=== PATIENT | female | born 1960 | race Caucasian/White ===

== ENCOUNTER 2020-05-10 10:32 | Emergency (ER) | payer OTHER ==
[2020-05-10] MEDS ORDERED: ADENOSINE 6 MG/ 2ML VIAL IV ONE (11:10)
[2020-05-10] MEDS ORDERED: NA CHLORIDE 0.9% 500 ML ONE (11:11)
[2020-05-10 11:27] LABS: Absolute Lymphocytes (CBC) 1.7 K/uL (0.7-4.9); Basophils % 0.8 % (0-1.3); Hematocrit 41.9 % (36.0-45.0); Lymphocytes % 22.3 % (15.3-44.8); RBC Red Blood Cell Count 5.49 M/uL (3.86-4.86)
[2020-05-10 11:56] LABS: BUN Blood Urea Nitrogen 17 mg/dL (7-18); Bicarbonate 31 mmol/L (21-32); CKMB Creatine Kinase MB < 1.0 ng/mL (0.3-3.6); Creatine Phosphokinase 58 U/L (26-192); Glucose Level 113 mg/dL (74-106); Potassium 3.7 mmol/L (3.5-5.1); Sodium Level 139 mmol/L (136-145); Troponin (Emerg Dept Use Only) < 0.02 ng/mL (0.0-0.045)
--- NOTE | 2020-05-10 12:18 | EDPHYS ---
Physician Documentation [facility] Name: Anna Huffman Age: 59 yrs Sex: Female : 1960 Arrival Date: 05/10/2020 Time: 10:33 Bed 5 Private MD: Catrachito Brown HPI: 05/10 11:08 This 59 yrs old Female presents to ER via Unassigned with complaints of snw Irregular Pulse. 11:08 Onset: The symptoms/episode began/occurred suddenly. Associated signs and symptoms: snw Pertinent positives: palpitations. Modifying factors: the patient symptoms are aggravated by caffeine. The patient has experienced similar episodes in the past, several times. It is unknown whether or not the patient has recently seen a physician. Historical: - Allergies: 11:25 PENICILLINS; ss - Home Meds: 11:25 None [Active]; ss - PMHx: 11:25 None; ss - PSHx: 11:25 Cholecystectomy; ss - Immunization history:: Adult Immunizations up to date, Flu vaccine is not up to date. - Social history:: Smoking status: Patient denies any tobacco usage or history of. ROS: 11:07 Constitutional: Negative for fever, chills, and weight loss, Eyes: Negative for injury, snw pain, redness, and discharge, ENT: Negative for injury, pain, and discharge, Neck: Negative for injury, pain, and swelling, Respiratory: Negative for shortness of breath, cough, wheezing, and pleuritic chest pain, Abdomen/GI: Negative for abdominal pain, nausea, vomiting, diarrhea, and constipation, Back: Negative for injury and pain, : Negative for injury, bleeding, discharge, and swelling, MS/Extremity: Negative for injury and deformity, Skin: Negative for injury, rash, and discoloration, Neuro: Negative for headache, weakness, numbness, tingling, and seizure, Psych: Negative for depression, anxiety, suicide ideation, homicidal ideation, and hallucinations. 11:07 Cardiovascular: Positive for palpitations. Exam: 11:07 Head/Face: Normocephalic, atraumatic. Eyes: Pupils equal round and reactive to light, snw extra-ocular motions intact. Lids and lashes normal. Conjunctiva and sclera are non-icteric and not injected. Cornea within normal limits. Periorbital areas with no swelling, redness, or edema. ENT: Nares patent. No nasal discharge, no septal abnormalities noted. Tympanic membranes are normal and external auditory canals are clear. Oropharynx with no redness, swelling, or masses, exudates, or evidence of obstruction, uvula midline. Mucous membranes moist. Neck: Trachea midline, no thyromegaly or masses palpated, and no cervical lymphadenopathy. Supple, full range of motion without nuchal rigidity, or vertebral point tenderness. No Meningismus. Chest/axilla: Normal chest wall appearance and motion. Nontender with no deformity. No lesions are appreciated. 11:07 Respiratory: Lungs have equal breath sounds bilaterally, clear to auscultation and percussion. No rales, rhonchi or wheezes noted. No increased work of breathing, no retractions or nasal flaring. Abdomen/GI: Soft, non-tender, with normal bowel sounds. No distension or tympany. No guarding or rebound. No evidence of tenderness throughout. Back: No spinal tenderness. No costovertebral tenderness. Full range of motion. Skin: Warm, dry with normal turgor. Normal color with no rashes, no lesions, and no evidence of cellulitis. MS/ Extremity: Pulses equal, no cyanosis. Neurovascular intact. Full, normal range of motion. Neuro: Awake and alert, GCS 15, oriented to person, place, time, and situation. Cranial nerves II-XII grossly intact. Motor strength 5/5 in all extremities. Sensory grossly intact. Cerebellar exam normal. Normal gait. Psych: Awake, alert, with orientation to person, place and time. Behavior, mood, and affect are within normal limits. 11:07 Constitutional: The patient appears alert, awake. 11:07 Cardiovascular: Rate: tachycardic, actual rate is 210 bpm, Rhythm: regular, Pulses: no pulse deficits are appreciated, Heart sounds: normal, Edema: is not appreciated, JVD: is not appreciated. 11:07 ECG was reviewed by the Attending Physician. Vital Signs: 10:55 BP 136 / 106; Pulse 208; Resp 18; Temp 98.2(TE); Pulse Ox 98% on R/A; Weight 65.77 kg; ss Height 5 ft. 0 in. (152.40 cm); Pain 0/10; 11:05 BP 125 / 91; Pulse 107; Resp 16; Pulse Ox 100% on R/A; Pain 0/10; ss 11:47 BP 125 / 91; Pulse 107; Resp 16; Pulse Ox 97% on R/A; Pain 0/10; ss 10:55 Body Mass Index 28.32 (65.77 kg, 152.40 cm) ss Procedures: 11:09 Cardioversion: chemical, 6mg Adenocard, small pause in cardiac activity. rate now 108, snw pt tolerated well. No complications. MDM: 10:51 Patient medically screened. snw 11:09 Data reviewed: vital signs, nurses notes. Counseling: I had a detailed discussion with snw the patient and/or guardian regarding: the historical points, exam findings, and any diagnostic results supporting the discharge/admit diagnosis, lab results, the need for outpatient follow up. 11:09 ED course: Pt's Mom and Sister have thyroid problems. snw 11:40 Response to treatment: the patient's condition has returned to base line, the patient snw is now symptom free. 12 11:07 Order name: TSH; Complete Time: 12:35 snw 1204 11:07 Order name: CBC with Diff; Complete Time: 12:15 snw 1204 11:07 Order name: Chem 7; Complete Time: 12:35 snw 1204 11:07 Order name: Ckmb; Complete Time: 12:35 snw 1204 11:07 Order name: Troponin (emerg Dept Use Only); Complete Time: 12:35 snw 1204 11:07 Order name: CPK; Complete Time: 12:35 snw 1204 11:07 Order name: EKG; Complete Time: 11:07 snw 1204 11:07 Order name: EKG - Nurse/Tech; Complete Time: 11:21 snw 1204 12:08 Order name: T4 Free; Complete Time: 12:35 EDMS Administered Medications: 11:00 Drug: NS 0.9% 500 ml Route: IV; Rate: bolus; Site: right antecubital; ss 11:01 Drug: Adenocard 6 mg Route: IVP; Site: right antecubital; ss 12:25 Follow up: Response: No adverse reaction; Cardiac rhythm changed zb 12:42 Drug: Metoprolol 25 mg Route: PO; zb Disposition: 05/11 08:28 Co-signature as Attending Physician, Catrachito Hoover MD I agree with the assessment and mylene plan of care. Disposition: 05/10/20 12:17 Discharged to Home. Impression: Supraventricular tachycardia. - Condition is Stable. - Discharge Instructions: Pharmaceutical Cardioversion, Paroxysmal Supraventricular Tachycardia, Cardiac Ablation, [id number]. - Prescriptions for metoprolol succinate 25 mg Oral tablet extended release 24 hr - take 1 tablet by ORAL route once daily; 30 tablet. - Medication Reconciliation Form, Thank You Letter, Antibiotic Education, Prescription Opioid Use form. - Follow up: Emergency Department; When: As needed; Reason: Worsening of condition. Follow up: Private Physician; When: 2 - 3 days; Reason: Recheck today's complaints, Continuance of care, Re-evaluation by your physician. Signatures: Dispatcher [employer] Catrachito Mireles MD MD cha Waters, Shelly, INFRASTRUCTURE MANAGER-C INFRASTRUCTURE MANAGER-Jorgew Liliya Lal RN RN ss Brown, Zipporah, RN RN zb Corrections: (The following items were deleted from the chart) 05/10 12:49 12:17 05/10/2020 12:17 Discharged to Home. Impression: Supraventricular tachycardia. zb Condition is Stable. Forms are Medication Reconciliation Form, Thank You Letter, Antibiotic Education, Prescription Opioid Use. Follow up: Emergency Department; When: As needed; Reason: Worsening of condition. Follow up: Private Physician; When: 2 - 3 days; Reason: Recheck today's complaints, Continuance of care, Re-evaluation by your physician. snw
--- NOTE | 2020-05-10 12:18 | ER ---
Nurse's Notes [facility] Name: Anna Huffman Age: 59 yrs Sex: Female : 1960 Arrival Date: 05/10/2020 Time: 10:33 Bed 5 Private MD: Diagnosis: Supraventricular tachycardia Presentation: 05/10 10:55 Chief complaint: Patient states: "I started feeling flutters in my chest this morning ss and so we were coming up here, but then they went away so we turned around, but in the last hour they've returned and haven't gone away.". Coronavirus screen: Client denies travel out of the [place] in the last 14 days. Ebola Screen: Patient denies exposure to infectious person. Patient denies travel to an Ebola-affected area in the 21 days before illness onset. Initial Sepsis Screen: Does the patient meet any 2 criteria? HR > 90 bpm. No. Patient's initial sepsis screen is negative. Does the patient have a suspected source of infection? No. Patient's initial sepsis screen is negative. Risk Assessment: Do you want to hurt yourself or someone else? Patient reports no desire to harm self or others. Onset of symptoms was May 10, 2020. 10:55 Method Of Arrival: Ambulatory ss 10:55 Acuity: REESE 1 ss Historical: - Allergies: 11:25 PENICILLINS; ss - Home Meds: 11:25 None [Active]; ss - PMHx: 11:25 None; ss - PSHx: 11:25 Cholecystectomy; ss - Immunization history:: Adult Immunizations up to date, Flu vaccine is not up to date. - Social history:: Smoking status: Patient denies any tobacco usage or history of. Screenin:10 Abuse screen: Denies threats or abuse. Denies injuries from another. Nutritional zb screening: No deficits noted. Tuberculosis screening: No symptoms or risk factors identified. Fall Risk None identified. Assessment: 10:55 General: Appears in no apparent distress. comfortable, Behavior is calm, cooperative, ss Denies fever, feeling ill, fatigue, chills, PT reports she feels lightheaded at times. Pain: Denies pain. Neuro: Level of Consciousness is awake, alert, obeys commands, Oriented to person, place, time, situation. Cardiovascular: Capillary refill < 3 seconds is brisk in bilateral fingers Pulses are palpable in right radial artery and left radial artery Rhythm is SVT Chest pain is denied. Respiratory: Airway is patent Respiratory effort is even, unlabored, Respiratory pattern is regular, symmetrical. GI: Patient currently denies diarrhea, nausea, vomiting. EENT: Nares are clear Oral mucosa is moist. Derm: Skin is intact, is healthy with good turgor, Skin is dry, Skin is pink, warm \\T\\ dry. normal. 11:15 Reassessment: Patient appears in no apparent distress at this time. Patient and/or ss family updated on plan of care and expected duration. Pain level reassessed. Patient is alert, oriented x 3, equal unlabored respirations, skin warm/dry/pink. Patient denies pain at this time. Patient states feeling better. Patient states symptoms have improved. Cardiovascular: Rhythm is sinus tachycardia. 11:47 General: Appears in no apparent distress. comfortable, Behavior is. Pain: Denies pain. ss 12:17 General: Appears in no apparent distress. comfortable, Behavior is calm, cooperative. zb Pain: Denies pain. Neuro: Level of Consciousness is awake, alert, obeys commands, Oriented to person, place, time, situation. Respiratory: Airway Respiratory effort is even, unlabored, Respiratory pattern is regular, symmetrical. GI: No signs and/or symptoms were reported involving the gastrointestinal system. : No signs and/or symptoms were reported regarding the genitourinary system. EENT: No signs and/or symptoms were reported regarding the EENT system. Derm: Skin is intact, is healthy with good turgor, Skin is dry, Skin is pink, warm \\T\\ dry. normal. Musculoskeletal: Circulation, motion, and sensation intact. Range of motion: intact in all extremities. 12:17 Cardiovascular: Heart tones S1 S2 Capillary refill < 3 seconds in bilateral fingers zb Pulses are all present. Rhythm is regular Chest pain is denied. Vital Signs: 10:55 BP 136 / 106; Pulse 208; Resp 18; Temp 98.2(TE); Pulse Ox 98% on R/A; Weight 65.77 kg; ss Height 5 ft. 0 in. (152.40 cm); Pain 0/10; 11:05 BP 125 / 91; Pulse 107; Resp 16; Pulse Ox 100% on R/A; Pain 0/10; ss 11:47 BP 125 / 91; Pulse 107; Resp 16; Pulse Ox 97% on R/A; Pain 0/10; ss 10:55 Body Mass Index 28.32 (65.77 kg, 152.40 cm) ED Course: 10:33 Patient arrived in ED. ds1 10:51 Nguyen Guzman FNP-C [facility]. snw 10:51 Catrachito Hoover MD is Attending Physician. snw 11:05 Arm band placed on right wrist. ss 11:23 Triage completed. ss 11:47 Liliya Lal, JONEL is Primary Nurse. ss 12:10 Patient has correct armband on for positive identification. cover cutter on. Pulse zb ox on. NIBP on. 12:10 No provider procedures requiring assistance completed. IV discontinued, intact, zb bleeding controlled, No redness/swelling at site. Pressure dressing applied. Patient maintains SpO2 saturation greater than 95% on room air. Administered Medications: 11:00 Drug: NS 0.9% 500 ml Route: IV; Rate: bolus; Site: right antecubital; ss 11:01 Drug: Adenocard 6 mg Route: IVP; Site: right antecubital; ss 12:25 Follow up: Response: No adverse reaction; Cardiac rhythm changed zb 12:42 Drug: Metoprolol 25 mg Route: PO; zb Outcome: 12:17 Discharge ordered by . snw 12:44 Discharged to home ambulatory. zb 12:44 Condition: stable 12:44 Discharge instructions given to patient, Instructed on discharge instructions, follow up and referral plans. medication usage, Demonstrated understanding of instructions, follow-up care, medications, Prescriptions given X 1. 12:49 Patient left the ED. zb Signatures: Nguyen Guzman FNP-C MATERIAL HANDLING CREW SUPERVISOR-Ferdinand SaenzMarline [place] ds1 Liliya Lal RN RN Shakila Chau RN RN zb Corrections: (The following items were deleted from the chart) 11:27 10:55 General: Appears in no apparent distress. comfortable, Behavior is calm, ss cooperative, Denies fever, feeling ill, fatigue, chills, ss 12:46 12:17 Respiratory: Airway Respiratory effort is even, unlabored, Respiratory pattern is zb regular, symmetrical, zb
[2020-05-10] MEDS ORDERED: METOPROLOL TAR 25 MG TAB ONE (12:42)
--- NOTE | 2020-05-11 20:04 | EKG ---
Test Date: 2020-05-10 Test Time: 10:56:46 Dispute Resolution Analyst: AMANDA MEASUREMENT RESULTS: Intervals: Rate: 208 LA: QRSD: 78 QT: 214 QTc: 398 Allgood: P: LA: QRS: 66 T: 243 INTERPRETIVE STATEMENTS: Supraventricular tachycardia Marked ST abnormality, possible inferior subendocardial injury Abnormal ECG No previous ECG available for comparison Electronically Signed On 05-11-20 20:01:35 SURFACE GRINDER by Jermaine Willett
[2020-05-15 17:34] VITALS: TEMP 98.2
[2020-05-15 17:42] VITALS: BP 125/91
[2020-05-15 17:44] VITALS: O2SAT 97
== END 2020-05-10 12:49 | disposition home or self-care (01) ==
LOC: ER 10:32
DX: I47.1 Supraventricular tachycardia (principal); Z88.0 Allergy status to penicillin
CPT/HCPCS: 92960; 93005 ×2; 85025; 80048; 36415; 82550; 84443; 84484; 82553; 84439; 96374; 99291; J0153; J7040